=== PATIENT | male | born 1985 | race Caucasian/White ===

== ENCOUNTER 2019-06-21 20:59 | Inpatient (IN) | payer OTHER ==
[~2019-06-21] VITALS: Ht 177.8 cm; Wt 145.8 kg
[2019-06-21] MEDS ORDERED: LORazepam 2 MG/ML, 1ML ONE (21:13)
--- NOTE | 2019-06-21 21:21 | NUR ---
CHAD RN: THIS IS A 33 YO MALE PT BIB [facility] FOR WITNESSED SEIZURE AT APPROX 1930. PER FAMILY PRESENTS SZ LASTED APPROX 1 MINUTE. NO PREV HX. PT NORMALLY DRINKS 2-4 32OZ NATURAL ICE AND AT LEAST 3 SHOTS BUT UP TO 8 SHOTS. PT DRANK "33 OZ NATTY ICE, AND I MILKED IT" AND 2-3 SHOTS. PT ALSO C/O RUQ ABD PAIN WITH CONSTIPATION AND GAS. PT ALSO C/O HEAT RASH TO FACE THAT PT STATES IS TYPICALLY RELATED TO CONSTPIATION. PT BURPRING FREUQUENTLY. PT AO X 4 ANSWERING QUESTIONS APPROPRIATELY BUT STILL APPEARS MILDLY POST-ICTAL REPEATING HIMSELF FREQUENTLY AND PT STATES "I DON'T QUITE FEEL LIKE MYSLEF YET". PT ON CONT BP AND O2 MONITORS. CURT SOSA WAS AT BEDSIDE FOR EVAL. PT MEDICATED ORDERED. REPORT TO PRIMARY RN ALEXANDRA.
[2019-06-21] MEDS ORDERED: ONDANSETRON 2MG/ML, 2ML ONE (21:26)
[2019-06-21] MEDS ORDERED: LORazepam 2 MG/ML, 1ML IVPush ONE (21:30)
[2019-06-21] MEDS ORDERED: SODIUM CHLORIDE 0.9% 1,000ML IVBOLUS ONE (21:30)
[2019-06-21] MEDS ORDERED: ONDANSETRON 2MG/ML, 2ML IVPush ONE (21:30)
[2019-06-21] MEDS ORDERED: OMEP40CA42 PO (21:33)
[2019-06-21 21:48] LABS: ALANINE AMINOTRANSFERASE 37 U/L (12-78); ALBUMIN 3.3 g/dL (3.4-5.0); ANION GAP 8 mmol/L (5-15); CALCIUM 9.1 mg/dL (8.5-10.1); CHLORIDE 101 mmol/L (98-107); CREATININE 1.33 mg/dL (0.7-1.3)
[2019-06-21 21:50] LABS: ALKALINE PHOSPHATASE 87 U/L (45-117); BILIRUBIN,TOTAL 0.8 mg/dL (0.2-1.0); TOTAL PROTEIN 6.9 g/dL (6.4-8.2)
[2019-06-21 21:53] LABS: MEAN CORPUSCULAR HEMOGLOBIN 19.7 pg (27.5-34.5); MEAN CORPUSCULAR HGB CONC 30.3 g/dL (33.2-36.2); MEAN CORPUSCULAR VOLUME 64.9 fL (81-97); MEAN PLATELET VOLUME 7.8 fL (7.4-10.4); PLATELET COUNT 234 x10^3/uL (130-400); RED BLOOD COUNT 4.89 x10^6/uL (4.38-5.82)
--- NOTE | 2019-06-21 21:53 | NUR ---
CT DELAY, WAITING FOR COVID CLEAN CT ROOM.
--- NOTE | 2019-06-21 22:06 | NUR ---
TO CT PER VIDYA
--- NOTE | 2019-06-21 22:13 | NUR ---
PT ENDORSED TO [facility]
[2019-06-21 22:18] LABS: BASOPHILS # (AUTO) 0.02 x10^3/uL (0-0.1); BASOPHILS % (AUTO) 0 % (0-1); EOSINOPHILS % (AUTO) 0 % (1-7); LYMPHOCYTES # (AUTO) 0.62 x10^3/uL (1-3.4); LYMPHOCYTES % (AUTO) 8 % (22-44); MD SCAN; MONOCYTES # (AUTO) 0.49 x10^3/uL (0.2-0.8); MONOCYTES % (AUTO) 7 % (2-9); NEUTROPHILS % (AUTO) 85 % (42-75)
--- NOTE | 2019-06-21 22:19 | NUR ---
PT RETURNS FROM CT AT THIS TIME. TECH AT BEDSIDE FOR EKG
[2019-06-21] MEDS ORDERED: STOOL SOFTENER (22:35)
[2019-06-21] MEDS ORDERED: PROBIOTIC (22:35)
[2019-06-21] MEDS ORDERED: MENS ONE A DAY (22:35)
--- NOTE | 2019-06-21 22:41 | NUR ---
AND RN TO BEDSIDE TO DISCUSS POC. PT AGREEABLE TO ADMIT. PT REMAINS SLIGHTL TREMULOUS AT THIS TIME. HOWEVER PT STATES HE FEELS "FINE"
--- NOTE | 2019-06-21 23:22 | NUR ---
report from desiree dean
[2019-06-21] MEDS ORDERED: POLYETHYLENE GLYCOL 17 GM PACKET PO PRN (23:30)
[2019-06-21] MEDS ORDERED: CHLORDIAZEPOXIDE 25 MG CAPSULE PO PRN (23:30)
[2019-06-21] MEDS ORDERED: LORazepam 2 MG/ML, 1ML IVPush PRN (23:30)
[2019-06-21] MEDS ORDERED: ONDANSETRON ODT 4 MG PO PRN (23:30)
[2019-06-21] MEDS ORDERED: ACETAMINOPHEN 325 MG TABLET PO PRN (23:30)
[2019-06-21] MEDS ORDERED: BISACODYL 10 MG SUPP PR PRN (23:30)
[2019-06-22] MEDS: THIAMINE 100MG TABLET PO SCH ×3 (00:25→22:01)
[2019-06-22] MEDS: NICOTINE 7 MG/24 HR PATCH.TD24 TD SCH ×2 (00:25→22:00)
[2019-06-22] MEDS: SODIUM CHLORIDE FLUSH 10ML SYR IVF SCH ×3 (00:26→22:01)
[2019-06-22 00:31] VITALS: BP 165/97
[2019-06-22 01:44] VITALS: BP 166/92
[2019-06-22] MEDS ORDERED: LORazepam 2 MG/ML, 1ML IV PRN (03:30)
[2019-06-22] MEDS ORDERED: CHLORDIAZEPOXIDE 10 MG CAPSULE PO PRN (03:30)
[2019-06-22] MEDS ORDERED: CHLORDIAZEPOXIDE 25 MG CAPSULE PO PRN ×3 (03:30)
[2019-06-22] MEDS: CHLORDIAZEPOXIDE 25 MG CAPSULE PO SCH ×4 (03:52→22:01)
[2019-06-22 05:14] LABS: ANION GAP 6 mmol/L (5-15); CALCIUM 8.2 mg/dL (8.5-10.1); CHLORIDE 103 mmol/L (98-107)
[2019-06-22 05:16] LABS: CREATININE 1.17 mg/dL (0.7-1.3)
[2019-06-22 05:42] LABS: MEAN CORPUSCULAR HEMOGLOBIN 20.2 pg (27.5-34.5); MEAN CORPUSCULAR HGB CONC 31.2 g/dL (33.2-36.2); MEAN CORPUSCULAR VOLUME 64.5 fL (81-97); MEAN PLATELET VOLUME 7.7 fL (7.4-10.4); PLATELET COUNT 193 x10^3/uL (130-400); RED BLOOD COUNT 4.41 x10^6/uL (4.38-5.82); RED CELL DISTRIBUTION WIDTH 22.1 % (9.4-14.8)
[2019-06-22 06:12] LABS: MD YES
[2019-06-22 06:13] LABS: LYMPH#(MANUAL) 0.92 x10^3/uL (1-3.4); LYMPHS% (MANUAL) 14 % (22-44); MONOS#(MANUAL) 0.53 x10^3/uL (0.3-2.7); MONOS% (MANUAL) 8 % (2-9); SEG#(MANUAL) 5.15 x10^3/uL (1.8-6.8); SEGS% (MANUAL) 78 % (42-75)
[2019-06-22 06:14] LABS: ANISOCYTOSIS 1+; HYPOCHROMIA 1+; MICROCYTOSIS 2+; OVALOCYTES 1+; POLYCHROMASIA 1+
[2019-06-22 06:15] LABS: <PLATELET ESTIMATE> ADEQUATE; <PLT MORPHOLOGY> NORMAL PLT MORPH
[2019-06-22 08:54] VITALS: BP 136/80
[2019-06-22] MEDS: OMEPRAZOLE 20 MG CAPSULE.DR PO SCH (08:57)
[2019-06-22] MEDS: SENNA/DOCUSATE TABLET PO SCH (08:57)
[2019-06-22] MEDS: MULTIVITAMINS/MINERALS TABLET PO SCH (08:57)
[2019-06-22] MEDS: FOLIC ACID 1 MG TABLET PO SCH (09:01)
[2019-06-22] MEDS: FERROUS SULFATE 325 MG TABLET PO SCH ×2 (11:28→16:48)
[2019-06-22] MEDS ORDERED: maalox/diphenh/lido/sucralfate 5 ML PO PRN (11:30)
[2019-06-22] MEDS ORDERED: POTASSIUM CHLORIDE 20 MEQ TAB.ER.PRT PO ONE (11:30)
[2019-06-22 12:05] VITALS: BP 137/84
[2019-06-22 19:59] VITALS: BP 153/82
[2019-06-23 01:04] VITALS: BP 144/80
[2019-06-23] MEDS: CHLORDIAZEPOXIDE 25 MG CAPSULE PO SCH ×2 (03:43→09:44)
[2019-06-23 08:00] VITALS: BP 154/93
[2019-06-23] MEDS: FERROUS SULFATE 325 MG TABLET PO SCH (08:16)
[2019-06-23] MEDS: SENNA/DOCUSATE TABLET PO SCH (09:00)
[2019-06-23] MEDS: OMEPRAZOLE 20 MG CAPSULE.DR PO SCH (09:44)
[2019-06-23] MEDS: THIAMINE 100MG TABLET PO SCH (09:44)
[2019-06-23] MEDS: MULTIVITAMINS/MINERALS TABLET PO SCH (09:44)
[2019-06-23] MEDS: FOLIC ACID 1 MG TABLET PO SCH (09:44)
[2019-06-23] MEDS: SODIUM CHLORIDE FLUSH 10ML SYR IVF SCH (09:45)
[2019-06-23] MEDS ORDERED: THIA100T67 PO (10:54)
[2019-06-23] MEDS ORDERED: FOLI-17 PO (10:54)
[2019-06-23] MEDS ORDERED: FERR-51 PO (10:54)
[2019-06-23] MEDS ORDERED: DOCU-131 PO (10:56)
[2019-06-23] MEDS ORDERED: POTASSIUM CHLORIDE 20 MEQ TAB.ER.PRT PO ONE (11:00)
== END 2019-06-23 12:37 | disposition home or self-care (01) | DRG 101 ==
LOC: ED 23:00 → EDIP 06-22 00:14 → 4EST 06-22 00:20
PROVIDERS: ADMIT Family Medicine; ATTEND Family Medicine
DX: G40.89 Other seizures (principal); Z68.42 Body mass index [BMI] 45.0-49.9, adult; E87.1 Hypo-osmolality and hyponatremia; F10.239 Alcohol dependence with withdrawal, unspecified; D50.9 Iron deficiency anemia, unspecified; E66.01 Morbid (severe) obesity due to excess calories; E87.6 Hypokalemia; F17.210 Nicotine dependence, cigarettes, uncomplicated; K21.9 Gastro-esophageal reflux disease without esophagitis; K59.00 Constipation, unspecified; Z82.5 Family history of asthma and other chronic lower respiratory diseases; Z90.89 Acquired absence of other organs; Z82.49 Family history of ischemic heart disease and other diseases of the circulatory system; Z88.1 Allergy status to other antibiotic agents; Z71.6 Tobacco abuse counseling
CPT/HCPCS: 36415; 70450; 80048; 80053; 80307; 82728; 83540; 83550; 85025; 93005; 96374; 96375; G0378; J2405; J2060; J7030

== ENCOUNTER 2019-07-31 09:19 | Inpatient (IN) | payer OTHER ==
[~2019-07-31] VITALS: Ht 177.8 cm; Wt 142.0 kg
[2019-07-31] VITALS (8 sets, daily range): BP systolic 153–179; BP diastolic 110–130
[~2019-07-31 09:19] MED LIST: DOCU-131 PO; FERR-51 PO; FOLI-17 PO; MENS ONE A DAY; OMEP40CA42 PO; PROBIOTIC; STOOL SOFTENER; THIA100T67 PO
--- NOTE | 2019-07-31 09:58 | NUR ---
PT CAME IN CO OF HAVING A SZ THIS MORNING. PT DENIES HITTING HEAD. PT DOES NOT TAKE MEDICINE FOR SZ. ALSO STATES HE HAD ONE 2 WEEKS AGO
[2019-07-31] MEDS ORDERED: ONDANSETRON 2MG/ML, 2ML IVPush ONE (10:30)
[2019-07-31] MEDS ORDERED: SODIUM CHLORIDE 0.9% 1,000ML IVBOLUS ONE (10:30)
[2019-07-31] MEDS ORDERED: SODIUM CHLORIDE FLUSH 10ML SYR IVF ONE (10:30)
[2019-07-31] MEDS ORDERED: THIAMINE 100 MG in SODIUM CHLORIDE 0.9% 50 ML IVPB ONE (10:30)
[2019-07-31] MEDS ORDERED: ONDANSETRON 2MG/ML, 2ML ONE (10:31)
[2019-07-31] MEDS ORDERED: LORazepam 2 MG/ML, 1ML ONE ×2 (10:32→12:58)
[2019-07-31] MEDS: LORazepam 2 MG/ML, 1ML IVPush PRN ×3 (10:36→13:24)
--- NOTE | 2019-07-31 10:50 | NUR ---
PT MEDICATED PER MAY. RESTING IN [facility]. SZ PRECAUTIONS IN PLACE
[2019-07-31 11:06] LABS: ALKALINE PHOSPHATASE 101 U/L (45-117); BILIRUBIN,TOTAL 0.7 mg/dL (0.2-1.0); TOTAL PROTEIN 6.6 g/dL (6.4-8.2)
--- NOTE | 2019-07-31 11:20 | NUR ---
KEY FILER: SPOKE WITH LAB. RESULTS WILL BE DELAYED
[2019-07-31 11:28] LABS: MEAN CORPUSCULAR HGB CONC 32.3 g/dL (33.2-36.2); MEAN CORPUSCULAR VOLUME 77.3 fL (81-97); RED BLOOD COUNT 4.92 x10^6/uL (4.38-5.82); RED CELL DISTRIBUTION WIDTH 30.6 % (9.4-14.8)
[2019-07-31 11:55] LABS: ANION GAP 10 mmol/L (5-15); CALCIUM 7.8 mg/dL (8.5-10.1); CHLORIDE 108 mmol/L (98-107); CREATININE 1.04 mg/dL (0.7-1.3)
[2019-07-31 12:01] LABS: ALANINE AMINOTRANSFERASE 71 U/L (12-78)
[2019-07-31 12:27] LABS: MD YES
[2019-07-31 12:28] LABS: EOS#(MANUAL) 0.02 x10^3/uL (0.0-0.4); EOS% (MANUAL) 1 % (1-7); LYMPH#(MANUAL) 0.83 x10^3/uL (1-3.4); LYMPHS% (MANUAL) 36 % (22-44); MONOS#(MANUAL) 0.32 x10^3/uL (0.3-2.7); MONOS% (MANUAL) 14 % (2-9); SEG#(MANUAL) 1.13 x10^3/uL (1.8-6.8); SEGS% (MANUAL) 49 % (42-75); SMUDGE CELLS 2+
[2019-07-31 12:30] LABS: <PLATELET ESTIMATE> ADEQUATE; LARGE PLATELETS 1+
[2019-07-31 12:31] LABS: ANISOCYTOSIS 2+; HYPOCHROMIA 1+; MICROCYTOSIS 1+; STOMATOCYTES 2+
[2019-07-31 12:33] LABS: MEAN PLATELET VOLUME 9.1 fL (7.4-10.4); PLATELET COUNT 121 x10^3/uL (130-400)
--- NOTE | 2019-07-31 13:02 | NUR ---
PT RESTING IN [facility]. MEDICATED PER MAY.
--- NOTE | 2019-07-31 13:27 | NUR ---
CIWA SCORE - 10. PT MEDICATED PER MAR
[2019-07-31] MEDS ORDERED: DOCUSATE 100 MG CAPSULE PO PRN (13:30)
[2019-07-31] MEDS ORDERED: BISACODYL 10 MG SUPP PR PRN (13:30)
[2019-07-31] MEDS ORDERED: ACETAMINOPHEN 325 MG TABLET PO PRN (13:30)
[2019-07-31] MEDS: LACTATED RINGERS 1,000 ML IV SCH (13:30)
[2019-07-31] MEDS ORDERED: GABAPENTIN 300 MG CAPSULE PO PRN (13:30)
[2019-07-31] MEDS ORDERED: LORazepam 1MG TABLET PO PRN (13:30)
[2019-07-31] MEDS ORDERED: ONDANSETRON 2MG/ML, 2ML IVPush PRN (13:30)
[2019-07-31] MEDS ORDERED: ONDANSETRON ODT 4 MG PO PRN (13:30)
[2019-07-31] MEDS ORDERED: LORazepam 2 MG/ML, 1ML IV PRN ×2 (13:30)
[2019-07-31] MEDS ORDERED: POLYETHYLENE GLYCOL 17 GM PACKET PO PRN (13:30)
[2019-07-31 14:13] LABS: TROPONIN I < 0.015 ng/mL (0.000-0.045)
[2019-07-31 14:14] LABS: INTERNATIONAL NORMALIZED RATIO 1.07 (0.93-1.1); PROTHROMBIN TIME 11.4 Seconds (9.6-11.5)
[2019-07-31] MEDS ORDERED: CHOL10003 PO (15:19)
[2019-07-31] MEDS: NICOTINE 7 MG/24 HR PATCH.TD24 TD SCH (15:45)
[2019-07-31] MEDS: THIAMINE 200 MG, FOLIC ACID 1 MG, MVI ADULT 10 ML in SODIUM CHLORIDE 0.9% 1,000 ML IV SCH (15:46)
[2019-07-31] MEDS: LORazepam 0.5MG TABLET PO PRN (16:22)
[2019-07-31] MEDS: LABETALOL 5MG/ML, 20ML IVPush PRN ×2 (17:59→22:22)
[2019-07-31] MEDS: ENALAPRILAT 1.25 MG/ML, 2ML IVPush PRN ×2 (18:31→19:19)
[2019-07-31] MEDS: LORazepam 1MG TABLET PO PRN (19:52)
[2019-07-31 22:28] LABS: AMPHETAMINE SCREEN, URINE Negative (Negative); BARBITURATE SCREEN, URINE Negative (Negative); BENZODIAZEPINE SCREEN, URINE Negative (Negative); CANNABINOID SCREEN, URINE Negative (Negative); COCAINE SCREEN, URINE Negative (Negative); METHADONE SCREEN, URINE Negative (Negative); OPIATE SCREEN, URINE Negative (Negative)
[2019-08-01] VITALS (7 sets, daily range): BP systolic 138–158; BP diastolic 87–107
[2019-08-01] MEDS ORDERED: hydrALAzine 20 MG/ML, 1ML IV ONE
[2019-08-01] MEDS: LORazepam 1MG TABLET PO PRN ×2 (00:12→04:18)
[2019-08-01] MEDS: LIDODERM 5% PATCH TD PRN (00:13)
[2019-08-01] MEDS: LACTATED RINGERS 1,000 ML IV SCH ×3 (00:13→16:00)
[2019-08-01] MEDS: ENALAPRILAT 1.25 MG/ML, 2ML IVPush PRN (02:09)
[2019-08-01 05:53] LABS: CHLORIDE 106 mmol/L (98-107)
[2019-08-01 06:03] LABS: ALANINE AMINOTRANSFERASE 46 U/L (12-78); ALBUMIN 2.7 g/dL (3.4-5.0); ALKALINE PHOSPHATASE 82 U/L (45-117); ANION GAP 9 mmol/L (5-15); BILIRUBIN,TOTAL 1.6 mg/dL (0.2-1.0); CALCIUM 7.5 mg/dL (8.5-10.1); CREATININE 0.93 mg/dL (0.7-1.3); TOTAL PROTEIN 5.9 g/dL (6.4-8.2)
[2019-08-01 06:28] LABS: MEAN CORPUSCULAR HEMOGLOBIN 25.1 pg (27.5-34.5); MEAN CORPUSCULAR HGB CONC 32.1 g/dL (33.2-36.2); MEAN CORPUSCULAR VOLUME 78.2 fL (81-97); RED BLOOD COUNT 4.19 x10^6/uL (4.38-5.82); RED CELL DISTRIBUTION WIDTH 29.9 % (9.4-14.8)
[2019-08-01 06:32] LABS: PLATELET COUNT 100 x10^3/uL (130-400)
[2019-08-01 06:37] LABS: MD YES
[2019-08-01 07:53] LABS: <PLATELET ESTIMATE> DECREASED; BAND#(MANUAL) 0.07 x10^3/uL; BANDS%(MANUAL) 2 % (0-7); EOS#(MANUAL) 0.03 x10^3/uL (0.0-0.4); EOS% (MANUAL) 1 % (1-7); LARGE PLATELETS 1+; LYMPH#(MANUAL) 1.42 x10^3/uL (1-3.4); LYMPHS% (MANUAL) 43 % (22-44); MONOS#(MANUAL) 0.07 x10^3/uL (0.3-2.7); MONOS% (MANUAL) 2 % (2-9); SEG#(MANUAL) 1.72 x10^3/uL (1.8-6.8); SEGS% (MANUAL) 52 % (42-75); SMUDGE CELLS 2+
[2019-08-01 07:54] LABS: ANISOCYTOSIS 2+; HYPOCHROMIA 1+; MICROCYTOSIS 1+; STOMATOCYTES 1+
[2019-08-01] MEDS: LORazepam 2 MG/ML, 1ML IV PRN ×2 (09:32→18:06)
[2019-08-01] MEDS: THIAMINE 200 MG, FOLIC ACID 1 MG, MVI ADULT 10 ML in SODIUM CHLORIDE 0.9% 1,000 ML IV SCH (15:00)
[2019-08-01] MEDS ORDERED: POTASSIUM CHLORIDE 10% 40 MEQ/30 ML UDC PO ONE (16:30)
[2019-08-01] MEDS: NICOTINE 7 MG/24 HR PATCH.TD24 TD SCH (18:06)
[2019-08-01] MEDS: LORazepam 0.5MG TABLET PO PRN (22:38)
[2019-08-02] MEDS: LACTATED RINGERS 1,000 ML IV SCH (00:42)
[2019-08-02 02:32] VITALS: BP 145/92
[2019-08-02 07:49] VITALS: BP 162/97
[2019-08-02] MEDS: THIAMINE 100MG TABLET PO SCH (09:55)
[2019-08-02] MEDS: FOLIC ACID 1 MG TABLET PO SCH (09:55)
[2019-08-02] MEDS: LORazepam 0.5MG TABLET PO PRN ×3 (10:05→20:23)
[2019-08-02 14:00] VITALS: BP 156/98
[2019-08-02] MEDS ORDERED: MAGNESIUM SULFATE PMX 2GM/50ML 50 ML IV ONE (16:30)
[2019-08-02] MEDS: NICOTINE 7 MG/24 HR PATCH.TD24 TD SCH (16:53)
[2019-08-02 19:48] VITALS: BP 160/112
[2019-08-02] MEDS: ENALAPRILAT 1.25 MG/ML, 2ML IVPush PRN (20:24)
[2019-08-02 21:11] VITALS: BP 157/99
[2019-08-03] MEDS: LORazepam 0.5MG TABLET PO PRN (00:20)
[2019-08-03 00:52] VITALS: BP 148/100
[2019-08-03 04:50] VITALS: BP 148/98
[2019-08-03 05:54] LABS: ALBUMIN 2.8 g/dL (3.4-5.0); ANION GAP 8 mmol/L (5-15); CALCIUM 8.2 mg/dL (8.5-10.1); CHLORIDE 109 mmol/L (98-107)
[2019-08-03 05:59] LABS: ALANINE AMINOTRANSFERASE 49 U/L (12-78); ALKALINE PHOSPHATASE 73 U/L (45-117); BILIRUBIN,TOTAL 0.6 mg/dL (0.2-1.0); CREATININE 0.73 mg/dL (0.7-1.3); TOTAL PROTEIN 6.2 g/dL (6.4-8.2)
[2019-08-03 06:33] VITALS: BP 141/92
[2019-08-03 07:41] LABS: MEAN CORPUSCULAR HEMOGLOBIN 25.9 pg (27.5-34.5); MEAN CORPUSCULAR HGB CONC 31.8 g/dL (33.2-36.2); MEAN CORPUSCULAR VOLUME 81.3 fL (81-97); MEAN PLATELET VOLUME 8.6 fL (7.4-10.4); PLATELET COUNT 115 x10^3/uL (130-400); RED CELL DISTRIBUTION WIDTH 30.1 % (9.4-14.8)
[2019-08-03 07:46] LABS: BAND#(MANUAL) 0.03 x10^3/uL; BANDS%(MANUAL) 1 % (0-7); EOS#(MANUAL) 0.03 x10^3/uL (0.0-0.4); EOS% (MANUAL) 1 % (1-7); LYMPH#(MANUAL) 0.83 x10^3/uL (1-3.4); LYMPHS% (MANUAL) 32 % (22-44); MD YES; MONOS#(MANUAL) 0.16 x10^3/uL (0.3-2.7); MONOS% (MANUAL) 6 % (2-9); SEG#(MANUAL) 1.56 x10^3/uL (1.8-6.8); SEGS% (MANUAL) 60 % (42-75)
[2019-08-03 07:47] LABS: ANISOCYTOSIS 2+; HYPOCHROMIA 2+; MICROCYTOSIS 1+; OVALOCYTES 1+
[2019-08-03 07:48] LABS: <PLATELET ESTIMATE> DECREASED; <PLT MORPHOLOGY> NORMAL PLT MORPH; STOMATOCYTES 1+
[2019-08-03] MEDS: THIAMINE 100MG TABLET PO SCH (08:16)
[2019-08-03] MEDS: FOLIC ACID 1 MG TABLET PO SCH (08:16)
[2019-08-03] MEDS: LIDODERM 5% PATCH TD PRN (13:13)
[2019-08-03 13:24] VITALS: BP 138/93
[2019-08-03] MEDS ORDERED: POTASSIUM CHLORIDE 20 MEQ TAB.ER.PRT PO ONE (13:30)
[2019-08-03] MEDS: NICOTINE 7 MG/24 HR PATCH.TD24 TD SCH (16:11)
== END 2019-08-03 18:47 | disposition home or self-care (01) | DRG 100 ==
LOC: ED 10:43 → EDIP 13:27 → 4WST 15:03
PROVIDERS: ADMIT Internal Medicine; ATTEND Hospitalist
DX: G40.89 Other seizures (principal); K85.20 Alcohol induced acute pancreatitis without necrosis or infection; F10.239 Alcohol dependence with withdrawal, unspecified; Z68.41 Body mass index [BMI] 40.0-44.9, adult; Z71.41 Alcohol abuse counseling and surveillance of alcoholic; D50.9 Iron deficiency anemia, unspecified; D69.6 Thrombocytopenia, unspecified; D72.819 Decreased white blood cell count, unspecified; E66.01 Morbid (severe) obesity due to excess calories; E87.6 Hypokalemia; F17.210 Nicotine dependence, cigarettes, uncomplicated; I10 Essential (primary) hypertension; K59.00 Constipation, unspecified; K70.9 Alcoholic liver disease, unspecified; K76.0 Fatty (change of) liver, not elsewhere classified; Y90.2 Blood alcohol level of 40-59 mg/100 ml; Z83.2 Family history of diseases of the blood and blood-forming organs and certain disorders involving the immune mechanism; Z86.2 Personal history of diseases of the blood and blood-forming organs and certain disorders involving the immune mechanism
CPT/HCPCS: 36415; 70450; 71045; 72114; 76705; 80053; 80307; 82607; 82728; 83540; 83550; 83690; 83735; 84100; 84443; 84466; 84484; 85025; 85610; 93005; 96361; 96365; G0378; J2405; J3411; Q0162; J0360; J2060; J3475; J7030; J7120